=== PATIENT | female | born 1970 | race Hispanic/Latino ===

== ENCOUNTER 2018-07-10 08:02 | Day surgery (SDC) | payer BC ==
[2018-07-10] MEDS ORDERED: Ringers Lactate 1,000 ML IV ONE (08:20)
[2018-07-10] MEDS ORDERED: LIDOCAINE 1% MPF 5 ML VIAL ONE (08:35)
[2018-07-10] MEDS ORDERED: PROPOFOL 200 MG/20 ML VIAL IV ONE (08:35)
--- NOTE | 2018-07-10 09:19 | ENDO RPT ---
[address], [address] EGD PROCEDURE REPORT EXAM DATE: 07/10/2018 PATIENT NAME: Zoe Roberts V. MR#: [id number] BIRTHDATE: 1970 ATTENDING: Larry Torres DR STATUS: outpatient BIOMASS TECHNICIAN: Ida Chinchilla RN and Tremayne Pryor INDICATIONS: The patient is a 47 yr old Female here for an EGD due to mid epigastric abdominal pain and dysphagia PROCEDURE PERFORMED: EGD with biopsy for H. pylori MEDICATIONS: Per Anesthesia. TOPICAL ANESTHETIC: none CONSENT: The patient understands the risks and benefits of the procedure and understands that these risks include, but are not limited to: sedation, allergic reaction, infection, perforation and/or bleeding. Alternative means of evaluation and treatment include, among others: physical exam, x-rays, and/or surgical intervention. The patient elects to proceed with this endoscopic procedure. DESCRIPTION OF PROCEDURE: During intra-op preparation period all mechanical medical equipment was checked for proper function. Hand hygiene and appropriate measures for infection prevention was taken. Procedure, possible complications, and alternatives including but not limited to the possibility of bleeding, perforation, tear, infection, sepsis, need for surgery, need for blood transfusion, and anesthesia related complications were explained to the patient. After the risks, benefits and alternatives of the procedure were thoroughly explained, Informed consent was verified, confirmed and timeout was successfully executed by the treatment team. The patient was placed in the left lateral position. The patient was anesthetized with topical anesthesia. Through the anesthetized oropharyngeal area, the scope was passed without any difficulty. The Pentax EG-[id number] ([id number]) endoscope was introduced through the mouth and advanced to the second portion of the duodenum. Retroflexed views revealed a small hiatal hernia. The gastroscope was then slowly withdrawn and removed. Duodenitis was found in the bulb and descending duodenum. Multiple biopsies were obtained and sent to pathology. Mild Atrophic gastritis was found in the body of the stomach. A biopsy for H. pylori was taken. Mild gastritis was found in the antrum. A biopsy for H. pylori was taken. A small hiatal hernia was found ADVERSE EVENTS: There were no complications. IMPRESSIONS: 1. Duodenitis was found in the bulb and descending duodenum 2. Mild Atrophic gastritis was found in the body of the stomach 3. Mild gastritis was found in the antrum 4. A small hiatal hernia was found RECOMMENDATIONS: 1. anti-reflux regimen 2. await biopsy results 3. follow-up: office 2 week(s) 4. acid suppression therapy 5. avoid NSAIDS 6. esophagram REPEAT EXAM: Larry Torres DR eSigned: Larry Torres DR 07/10/2018 9:18 AM cc: CPT CODES: ICD9 CODES: PATIENT NAME: Zoe Roberts V. MR#: [id number]
== END 2018-07-10 10:00 | disposition home or self-care (01) ==
LOC: OR 08:02
PROVIDERS: ATTEND Surgery
PROC: 0DB78ZX Excision of Stomach, Pylorus, Via Natural or Artificial Opening Endoscopic, Diagnostic (ICD-10-PCS; 2018-07-10)
PROC: 0DB68ZX Excision of Stomach, Via Natural or Artificial Opening Endoscopic, Diagnostic (ICD-10-PCS; 2018-07-10)
PROC: 0DB98ZX Excision of Duodenum, Via Natural or Artificial Opening Endoscopic, Diagnostic (ICD-10-PCS; principal; 2018-07-10 09:00)
DX: K29.50 Unspecified chronic gastritis without bleeding (principal); B96.81 Helicobacter pylori [H. pylori] as the cause of diseases classified elsewhere; K29.80 Duodenitis without bleeding; K44.9 Diaphragmatic hernia without obstruction or gangrene
CPT/HCPCS: 82962; 88305; 88312; J2704

== ENCOUNTER 2022-05-04 06:37 | Day surgery (SDC) | payer BC ==
[2022-05-03 15:10] LABS: Potassium 3.7 mmol/L (3.5-5.1)
[2022-05-04] MEDS ORDERED: Ringers Lactate 1,000 ML IV ONE (07:04)
[2022-05-04] MEDS ORDERED: LIDOCAINE 1% MPF 30 ML VIAL ONE (07:11)
[2022-05-04] MEDS ORDERED: propofoL 200 MG/20 ML VIAL IV ONE (07:11)
--- NOTE | 2022-05-04 07:51 | EKG ---
Test Date: 2022-05-03 Test Time: 14:13:48 Ballistic Expert: SAMIRA MEASUREMENT RESULTS: Intervals: Rate: 59 MI: 110 QRSD: 92 QT: 410 QTc: 405 Pawling: P: 42 MI: 110 QRS: 66 T: 71 INTERPRETIVE STATEMENTS: Sinus bradycardia with short MI Otherwise normal ECG Compared to ECG 06/02/2016 17:54:39 Short MI interval now present Sinus rhythm no longer present Electronically Signed On 05-04-22 07:50:52 WORKFORCE MANAGEMENT MANAGER by Nando Jarrett
[2022-05-04 09:08] VITALS: O2SAT 99
[2022-05-04 09:18] VITALS: BP 123/56
[2022-05-04 09:19] VITALS: TEMP 98.1
== END 2022-05-04 09:24 | disposition home or self-care (01) ==
LOC: OR 06:37
PROVIDERS: ATTEND Surgery
PROC: 0DB78ZX Excision of Stomach, Pylorus, Via Natural or Artificial Opening Endoscopic, Diagnostic (ICD-10-PCS; 2022-05-04)
PROC: 0DB68ZX Excision of Stomach, Via Natural or Artificial Opening Endoscopic, Diagnostic (ICD-10-PCS; 2022-05-04)
PROC: 0DBN8ZX Excision of Sigmoid Colon, Via Natural or Artificial Opening Endoscopic, Diagnostic (ICD-10-PCS; principal; 2022-05-04 08:00)
PROC: 0DB98ZX Excision of Duodenum, Via Natural or Artificial Opening Endoscopic, Diagnostic (ICD-10-PCS; 2022-05-04 08:00)
DX: Z12.11 Encounter for screening for malignant neoplasm of colon (principal); D12.5 Benign neoplasm of sigmoid colon; K64.8 Other hemorrhoids; K21.9 Gastro-esophageal reflux disease without esophagitis; K44.9 Diaphragmatic hernia without obstruction or gangrene; K29.50 Unspecified chronic gastritis without bleeding; K21.00 Gastro-esophageal reflux disease with esophagitis, without bleeding
CPT/HCPCS: 93005; 80048; 36415; 88312; 88305; 45380; 43239; J2704; J2001; J7120